=== PATIENT | male | born 1960 | race Caucasian/White ===

== ENCOUNTER 2018-05-29 21:12 | Inpatient (IN) | payer OTHER ==
[~2018-05-29] VITALS: Ht 180.3 cm; Wt 63.8 kg
--- NOTE | 2018-05-29 21:38 | NUR ---
PT. TO ED WITH C/O 10/29 STERNAL CP DESCRIBED SHARP PRESSURE THAT STARTED THIS AM BUT IS NOW WORSE. PT. REPORT "WHEN I WOKE UP THIS AM I FELT LIKE I WAS FEVERISH AND I HAD SOME DIARRHEA." PT. REPORTS NAUSEA AND 1 EPISODE OF VOMITING. JUST FLEW BACK FROM [place] ON SATURDAY. PT. HAD ID OCTOBER 2017 WITH 1 STENT PLACED. HX OF A-FIB AND BRADYCARDIA WHILE IN [facility] IN 2017. PT. SKIN PWD AND NON-DIAPHORETIC. DENIES SOB. PLACED ON CONTINUOUS PULSE OX, B/P, AND HEART MONITORS. EKG DONE IN TRIAGE AND PRESENTED TO ERMD.
--- NOTE | 2018-05-29 21:43 | NUR ---
TOOK 1 NITRO CONCHE LOADER AND UNLOADER AT 1700 WITH RELIEF BUT PAIN CAME BACK.
[2018-05-29] MEDS ORDERED: ROSU20TA PO (21:49)
[2018-05-29] MEDS ORDERED: RIVA20TA PO (21:49)
[2018-05-29] MEDS ORDERED: CETI10CA PO (21:49)
[2018-05-29] MEDS ORDERED: AMLO10TA8 PO (21:49)
[2018-05-29] MEDS ORDERED: AMLO-150 PO (21:49)
[2018-05-29] MEDS ORDERED: CLOP75TA PO (21:49)
[2018-05-29] MEDS ORDERED: NITR0.6T4 SL (21:49)
[2018-05-29] MEDS ORDERED: PANT20TA3 PO (21:49)
--- NOTE | 2018-05-29 21:50 | NUR ---
AWAITING PROVIDER EVAL.
[2018-05-29] MEDS ORDERED: ONDANSETRON 2MG/ML, 2ML IVPush ONE (22:00)
[2018-05-29] MEDS ORDERED: ASPIRIN 81 MG TABLET CHEW PO ONE (22:00)
[2018-05-29] MEDS ORDERED: ASPIRIN 81 MG TABLET CHEW ONE (22:05)
[2018-05-29] MEDS ORDERED: MORPHINE SULFATE 4 MG/ML, 1ML ONE ×2 (22:05→22:22)
[2018-05-29] MEDS ORDERED: ONDANSETRON 2MG/ML, 2ML ONE (22:05)
[2018-05-29] MEDS: MORPHINE SULFATE 4 MG/ML, 1ML IVPush PRN ×2 (22:07→22:23)
--- NOTE | 2018-05-29 22:17 | NUR ---
DR. SMITH WAS IN TO EVAL PT. AND DISCUSS POC. PT. HAS BEEN MEDICATED PER JUN. CHEST X-RAY COMPLETD AND LABS DRAWN. FAMILY AT BS FOR SUPPORT. CALL LIGHT IN REACH. ALL SAFETY MEASURES OBSERVED. CP IS WORSE WITH PALPATION PER PT.
--- NOTE | 2018-05-29 22:25 | NUR ---
PT. MEDICATED WITH 2ND DOSE OF MORPHINE FOR CONTINUED PAIN.
[2018-05-29 22:27] LABS: BASOPHILS # (AUTO) 0.03 x10^3/uL (0-0.1); BASOPHILS % (AUTO) 0 % (0-1); EOSINOPHILS # (AUTO) 0.11 x10^3/uL (0-0.4); EOSINOPHILS % (AUTO) 1 % (1-7); LYMPHOCYTES # (AUTO) 0.98 x10^3/uL (1-3.4); LYMPHOCYTES % (AUTO) 10 % (22-44); MD NO; MEAN CORPUSCULAR HEMOGLOBIN 33.6 pg (27.5-34.5); MEAN CORPUSCULAR HGB CONC 34.8 g/dL (33.2-36.2); MEAN CORPUSCULAR VOLUME 96.8 fL (81-97); MEAN PLATELET VOLUME 8.3 fL (7.4-10.4); MONOCYTES # (AUTO) 1.21 x10^3/uL (0.2-0.8); MONOCYTES % (AUTO) 13 % (2-9); NEUTROPHILS % (AUTO) 76 % (42-75); PLATELET COUNT 179 x10^3/uL (130-400); RED CELL DISTRIBUTION WIDTH 13.4 % (9.4-14.8)
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
[2018-05-29 22:37] LABS: INTERNATIONAL NORMALIZED RATIO 1.34 (0.93-1.1)
[2018-05-29 22:41] LABS: CHLORIDE 109 mmol/L (98-107)
[2018-05-29] MEDS ORDERED: NITROGLYCERIN SINGLE TAB 0.4 MG SL ONE ×2 (22:50)
[2018-05-29 22:55] LABS: ALANINE AMINOTRANSFERASE 49 U/L (12-78); ALBUMIN 3.7 g/dL (3.4-5.0); ALKALINE PHOSPHATASE 89 U/L (45-117); ANION GAP 6 mmol/L (5-15); BILIRUBIN,TOTAL 1.3 mg/dL (0.2-1.0); CALCIUM 8.4 mg/dL (8.5-10.1); CREATININE 0.96 mg/dL (0.7-1.3); TOTAL PROTEIN 7.1 g/dL (6.4-8.2); TROPONIN I < 0.015 ng/mL (0.000-0.045)
[2018-05-29] MEDS ORDERED: NITROGLYCERIN SINGLE TAB 0.4 MG SL PRN (23:00)
--- NOTE | 2018-05-29 23:00 | NUR ---
Bedside SBAR report received from RN, Eileen. Pt resting on gurney, all monitors on pt, NSR noted. Pt reporting a "wave of the chest pain" currently. VS remain stable. Pt with NTG tab still intact under tongue, this RN to recheck and repeat BP when tablet is dissolved. Family remains at bedside.
--- NOTE | 2018-05-29 23:06 | NUR ---
Dr. Portillo at bedside to discuss ED findings and POC.
--- NOTE | 2018-05-29 23:09 | NUR ---
NTG tablet dissolved, blood pressure rechecked, some change noted. Pt states that he is feeling "woozy, like blood pressure woozy," 2nd dose of NTG not to be given.
--- NOTE | 2018-05-29 23:33 | NUR ---
Pt to imaging, with tech, on genie.
--- NOTE | 2018-05-29 23:43 | NUR ---
Pt back to room from imaging.
[2018-05-29] MEDS ORDERED: OMNIPAQUE 350 MG/ML, 100ML BOTTLE ONE (23:53)
[2018-05-30] VITALS (7 sets, daily range): BP systolic 101–161; BP diastolic 68–89
[2018-05-30] MEDS ORDERED: HYDROmorphone 1 MG/ML, 1ML IVPush PRN (00:30)
[2018-05-30] MEDS ORDERED: ONDANSETRON 2MG/ML, 2ML IVPush PRN ×2 (00:30→01:00)
--- NOTE | 2018-05-30 00:51 | NUR ---
Pt to imaging, with tech, via gugomez.
[2018-05-30] MEDS ORDERED: NITROGLYCERIN 0.4 MG BOTTLE (25 TABS) SL PRN ×2 (01:00→04:30)
[2018-05-30] MEDS ORDERED: ACETAMINOPHEN 325 MG TABLET PO PRN (01:00)
[2018-05-30] MEDS ORDERED: BISACODYL 10 MG SUPP PR PRN (01:00)
[2018-05-30] MEDS ORDERED: POLYETHYLENE GLYCOL 17 GM PACKET PO PRN (01:00)
--- NOTE | 2018-05-30 01:06 | NUR ---
Pt back to room from imaging.
--- NOTE | 2018-05-30 01:57 | NUR ---
Telephone SBAR report called to [facility]. Pt made aware of new room assignment.
[2018-05-30 02:08] LABS: BASOPHILS % (AUTO) 0 % (0-1); EOSINOPHILS # (AUTO) 0.09 x10^3/uL (0-0.4); EOSINOPHILS % (AUTO) 1 % (1-7); LYMPHOCYTES # (AUTO) 1.34 x10^3/uL (1-3.4); LYMPHOCYTES % (AUTO) 14 % (22-44); MD NO; MEAN CORPUSCULAR HEMOGLOBIN 33.5 pg (27.5-34.5); MEAN CORPUSCULAR HGB CONC 34.7 g/dL (33.2-36.2); MEAN CORPUSCULAR VOLUME 96.6 fL (81-97); MEAN PLATELET VOLUME 8.2 fL (7.4-10.4); MONOCYTES # (AUTO) 0.92 x10^3/uL (0.2-0.8); MONOCYTES % (AUTO) 10 % (2-9); NEUTROPHILS # (AUTO) 7.27 x10^3/uL (1.8-6.8); NEUTROPHILS % (AUTO) 76 % (42-75); PLATELET COUNT 163 x10^3/uL (130-400); RED BLOOD COUNT 4.43 x10^6/uL (4.38-5.82)
[2018-05-30 02:17] LABS: ALANINE AMINOTRANSFERASE 47 U/L (12-78); ALBUMIN 3.3 g/dL (3.4-5.0); ANION GAP 6 mmol/L (5-15); CALCIUM 8.1 mg/dL (8.5-10.1); CHLORIDE 109 mmol/L (98-107); CREATININE 0.91 mg/dL (0.7-1.3)
[2018-05-30 02:19] LABS: ALKALINE PHOSPHATASE 78 U/L (45-117); BILIRUBIN,TOTAL 1.3 mg/dL (0.2-1.0); TOTAL PROTEIN 6.4 g/dL (6.4-8.2)
[2018-05-30 02:21] LABS: TROPONIN I < 0.015 ng/mL (0.000-0.045)
[2018-05-30] MEDS: morphine SULFATE 10 MG/ML, 1ML IVPush PRN ×3 (03:19→11:43)
[2018-05-30] MEDS: SODIUM CHLORIDE 0.9% 1,000 ML IV SCH ×2 (03:25→16:08)
[2018-05-30] MEDS: ATORVASTATIN 40 MG TABLET PO SCH ×2 (03:25→21:00)
[2018-05-30] MEDS: PANTOPRAZOLE 20MG TABLET PO SCH (05:38)
[2018-05-30] MEDS: SENNA/DOCUSATE TABLET PO SCH (09:00)
[2018-05-30] MEDS ORDERED: AMLODIPINE 5 MG TABLET PO SCH (09:00)
[2018-05-30 10:17] LABS: TROPONIN I < 0.015 ng/mL (0.000-0.045)
[2018-05-30] MEDS ORDERED: REGADENOSON 0.4 MG/5 ML SYRINGE ONE (10:27)
[2018-05-30] MEDS: CLOPIDOGREL 75 MG TABLET PO SCH (11:44)
[2018-05-30] MEDS: AMLODIPINE 10 MG TAB PO SCH (11:45)
[2018-05-30] MEDS: CETIRIZINE 10 MG TABLET PO SCH (11:45)
[2018-05-30] MEDS ORDERED: morphine SULFATE 10 MG/ML, 1ML IVPush PRN (16:00)
[2018-05-30] MEDS ORDERED: MAALOX/HYOSCYAMINE/LIDOCAINE 45 ML BTL PO ONE (16:00)
[2018-05-30] MEDS ORDERED: MAALOX/HYOSCYAMINE/LIDOCAINE 45 ML BTL PO PRN (16:00)
[2018-05-30] MEDS: KETOROLAC 30 MG/1 ML IVPush SCH ×2 (16:07→21:29)
[2018-05-30] MEDS ORDERED: RIVAROXABAN 20 MG TABLET PO SCH (21:00)
[2018-05-31 01:45] VITALS: BP 132/79
[2018-05-31] MEDS: SODIUM CHLORIDE 0.9% 1,000 ML IV SCH ×2 (04:55→12:00)
[2018-05-31] MEDS: KETOROLAC 30 MG/1 ML IVPush SCH ×2 (04:55→11:19)
[2018-05-31] MEDS: PANTOPRAZOLE 20MG TABLET PO SCH (04:59)
[2018-05-31 05:04] LABS: BASOPHILS # (AUTO) 0.02 x10^3/uL (0-0.1); BASOPHILS % (AUTO) 0 % (0-1); EOSINOPHILS # (AUTO) 0.12 x10^3/uL (0-0.4); EOSINOPHILS % (AUTO) 2 % (1-7); LYMPHOCYTES # (AUTO) 1.04 x10^3/uL (1-3.4); LYMPHOCYTES % (AUTO) 14 % (22-44); MD NO; MEAN CORPUSCULAR HGB CONC 34.9 g/dL (33.2-36.2); MEAN CORPUSCULAR VOLUME 97.4 fL (81-97); MONOCYTES # (AUTO) 0.73 x10^3/uL (0.2-0.8); MONOCYTES % (AUTO) 10 % (2-9); NEUTROPHILS # (AUTO) 5.48 x10^3/uL (1.8-6.8); NEUTROPHILS % (AUTO) 74 % (42-75); PLATELET COUNT 170 x10^3/uL (130-400); RED BLOOD COUNT 4.68 x10^6/uL (4.38-5.82)
[2018-05-31 05:09] LABS: CHLORIDE 107 mmol/L (98-107)
[2018-05-31 05:16] LABS: ALANINE AMINOTRANSFERASE 43 U/L (12-78); ALBUMIN 3.1 g/dL (3.4-5.0); ALKALINE PHOSPHATASE 81 U/L (45-117); ANION GAP 5 mmol/L (5-15); BILIRUBIN,TOTAL 0.9 mg/dL (0.2-1.0); CALCIUM 8.1 mg/dL (8.5-10.1); CHOL/HDL RATIO 2.2; CHOLESTEROL, TOTAL 141 mg/dL (140-239); CREATININE 0.92 mg/dL (0.7-1.3); HDL CHOL % 46 % (26-37); HDL CHOLESTEROL (DIRECT) 65 mg/dL (40-60); LDL CHOLESTEROL,CALCULATED 61 mg/dL (54-169); LDL/HDL RATIO 0.9 (0.5-3.0); TOTAL PROTEIN 6.6 g/dL (6.4-8.2); TRIGLYCERIDES 74 mg/dL (50-200); VLDL CHOLESTEROL 15 mg/dL (0-25)
[2018-05-31 06:59] VITALS: BP 129/75
[2018-05-31] MEDS: SENNA/DOCUSATE TABLET PO SCH (09:00)
[2018-05-31] MEDS ORDERED: ACET325T14 PO (09:11)
[2018-05-31] MEDS ORDERED: NAPR-685 PO (09:13)
[2018-05-31] MEDS: AMLODIPINE 10 MG TAB PO SCH (11:19)
[2018-05-31] MEDS: CETIRIZINE 10 MG TABLET PO SCH (11:19)
[2018-05-31] MEDS: CLOPIDOGREL 75 MG TABLET PO SCH (11:19)
[2018-05-31 13:14] VITALS: BP 155/85
== END 2018-05-31 14:26 | disposition home or self-care (01) | DRG 313 ==
LOC: EDBD 21:12 → ED 23:36 → EDIP 05-30 00:17 → 5SO 05-30 02:09 → 3NE 05-30 22:05
PROVIDERS: ADMIT Hospitalist; ATTEND Hospitalist
DX: R07.89 Other chest pain (principal); D68.69 Other thrombophilia; K80.20 Calculus of gallbladder without cholecystitis without obstruction; I48.91 Unspecified atrial fibrillation; Z79.01 Long term (current) use of anticoagulants; I49.3 Ventricular premature depolarization; K82.8 Other specified diseases of gallbladder; I10 Essential (primary) hypertension; I25.10 Atherosclerotic heart disease of native coronary artery without angina pectoris; Z95.5 Presence of coronary angioplasty implant and graft; I25.2 Old myocardial infarction; Z92.3 Personal history of irradiation; Z85.46 Personal history of malignant neoplasm of prostate; Z82.3 Family history of stroke
CPT/HCPCS: 36415; 71045; 71275; 76700; 78452; 80053; 80061; 83690; 84145; 84484; 85025; 85610; 87338; 93005; 93017; 96374; 96375; G0378; J1885; J2405; J2785; Q9967; A9502; C9898; J2270; J7030